=== PATIENT | male | born 1985 ===

== ENCOUNTER 2017-02-14 18:18 | Emergency (ER) | payer OTHER ==
[2017-02-14 18:32] VITALS: BP 135/88; PULSE 82; RESP 16; TEMP 99.3; O2SAT 99
--- NOTE | 2017-02-14 18:51 | ED PDOC ---
HPI: Male Pain Time Seen by Provider: 02/14/17 18:34 Chief Complaint (Nursing): Male Genitourinary Chief Complaint (Provider): Medical Evaluation History Per: Patient History/Exam Limitations: no limitations Onset/Duration Of Symptoms: Days (x1) Additional Complaint(s): Aftab Hameed is a 31 year old male, with no past medical history, who presents to the emergency department for evaluation of STDs after his condom broke during sexual intercourse yesterday. Patient was suggested by a friend in the medical field to receive a prophylactic antiviral medication and be tested for STDs. He states because it was a holiday and the sexual partner was a stranger, he wants to be sure he doesn't have any disease. He denies any fever, chills, nausea or vomit, no penile rash or discharge. No further medical complaints. PMD: None provided. Past Medical History Reviewed: Historical Data, Nursing Documentation, Vital Signs Vital Signs: Last Vital Signs Temp 99.3 F 02/14/17 18:31 Pulse 82 02/14/17 18:31 Resp 16 02/14/17 18:31 BP 135/88 02/14/17 18:31 Pulse Ox 99 02/14/17 18:31 - Family History Family History: States: Unknown Family Hx - Home Medications Home Medications: Ambulatory Orders Medication Instructions Recorded Dolutegravir Sodium [Tivicay] 50 mg PO DAILY #28 tab 02/14/17 Emtricitabine/Tenofovir (Tdf) 1 each PO DAILY #28 tablet 02/14/17 [Truvada 200 mg-300 mg Tablet] - Allergies Allergies/Adverse Reactions: Allergies Allergy/AdvReac Type Severity Reaction Status Date / Time shellfish derived Allergy SHORTNESS Verified 02/14/17 18:29 OF BREATH Review of Systems ROS Statement: Except As Marked, All Systems Reviewed And Found Negative Constitutional: Negative for: Fever, Chills Gastrointestinal: Negative for: Nausea, Vomiting Physical Exam - Reviewed Nursing Documentation Reviewed: Yes Vital Signs Reviewed: Yes - Physical Exam Appears: Positive for: Well, Non-toxic, No Acute Distress Head Exam: Positive for: ATRAUMATIC, NORMAL INSPECTION, NORMOCEPHALIC Skin: Positive for: Normal Color, Warm, Dry Eye Exam: Positive for: EOMI, Normal appearance, PERRL Neck: Positive for: Normal, Painless ROM, Supple Respiratory: Negative for: Respiratory Distress Extremity: Positive for: Normal ROM Neurologic/Psych: Positive for: Alert, Oriented - ECG O2 Sat by Pulse Oximetry: 99 (RA) Pulse Ox Interpretation: Normal Medical Decision Making Medical Decision Making: Initial Impression: Medical evaluation Initial Plan: ~ Scribe Attestation: Documented by James Berwster, acting as a scribe for Kim Allen PA-C. Provider Scribe Attestation: All medical record entries made by the Scribe were at my direction and personally dictated by me. I have reviewed the chart and agree that the record accurately reflects my personal performance of the history, physical exam, medical decision making, and the department course for this patient. I have also personally directed, reviewed, and agree with the discharge instructions and disposition. Disposition - Clinical Impression Clinical Impression: Sexually transmitted disease counseling - Patient ED Disposition Is Patient to be Admitted: No - Disposition Disposition: Routine/Home Disposition Time: 19:07 Condition: STABLE Prescriptions: Dolutegravir Sodium [Tivicay] 50 mg PO DAILY #28 tab Emtricitabine/Tenofovir (Tdf) [Truvada 200 mg-300 mg Tablet] 1 each PO DAILY # 28 tablet Instructions: Safe Sex (ED) Forms: [employer] (Urdu)
[2017-02-14] MEDS ORDERED: cefTRIAXone (Rocephin) 250 mg Inj IM ONE (19:03)
[2017-02-14] MEDS ORDERED: cefTRIAXone (Rocephin) 250 mg Inj ONE (19:16)
[2017-02-14] MEDS ORDERED: Sterile Water 10 ML IV ONE (19:22)
== END 2017-02-14 19:29 | disposition home or self-care (01) ==
LOC: H.ER 18:18
DX: Z70.8 Other sex counseling (principal); Z11.3 Encounter for screening for infections with a predominantly sexual mode of transmission
CPT/HCPCS: 96372; 99282; J0696